=== PATIENT | male | born 1960 | race Caucasian/White ===

== ENCOUNTER 2024-09-29 17:55 | Emergency (ER) | payer OTHER, SELFPAY ==
[2024-09-29 18:05] VITALS: BP 170/100; BP 175/75; PULSE 115; RESP 18; O2SAT 93; O2SAT 94; BMI 23.0
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
[2024-09-29 18:43] LABS: Glucose, Whole Blood 139 mg/dL (60-115)
--- NOTE | 2024-09-29 18:58 | PC.NURSE ---
this RN witnessed patient consent for blood draw. blood drawn by this RN. chain of custody done with michel SANTO. patient is awake and alert
== END 2024-09-30 00:36 | disposition home or self-care (01) ==
PROVIDERS: Emergency Provider Emergency Medicine
DX: R41.0 Disorientation, unspecified (principal); R03.0 Elevated blood-pressure reading, without diagnosis of hypertension; R06.82 Tachypnea, not elsewhere classified; R21 Rash and other nonspecific skin eruption
CPT/HCPCS: 82947; 99282; 99284

== ENCOUNTER 2024-10-04 18:27 | Inpatient (IN) | payer OTHER, SELFPAY ==
--- NOTE | ~2024-10-04 | XR_ITS ---
CLINICAL HISTORY: low spo2, cough 1 view chest x-ray. Comparison: None Findings: No pleural effusion. No pneumothorax. Heart size normal. No acute fracture. Impression: Mild increased density superimposed in the anterior arcs of the left 4th and 5th ribs most likely due to anterior rib calcification but can not exclude small consolidations in this location. Consider adding lateral view on follow-up exam. This document has been electronically signed by: Tom Kang MD on 10/04/2024 20:23:18
--- NOTE | ~2024-10-04 | CT_ITS ---
CLINICAL HISTORY: hypoxia CT chest without contrast Comparison: None Findings: Motion and streak artifact limit evaluation. The heart size is normal. Diffuse esophageal mural thickening, nonspecific. Gynecomastia. Paraseptal and centrilobular emphysema with bullous changes in the right apex. Ill-defined diffuse bilateral dependent consolidations in the chnsr-wjucfoy-grth-left lungs. No significant pleural effusion or pneumothorax. Tiny bilateral ill-defined pulmonary nodules measuring up to 5 mm. Per Fleischner criteria: Low-risk patients: No routine follow-up required. High-risk patients: Optional CT at 12 months. Hepatic steatosis noted. Bilateral perinephric stranding, nonspecific. Possible gallbladder wall thickening versus artifact from motion. Thoracic diffuse idiopathic skeletal hyperostosis. Osteopenia. Multilevel Schmorl's nodes. IMPRESSION: 1. Paraseptal and centrilobular emphysema with bullous changes in the right apex. 2. Ill-defined diffuse bilateral dependent consolidations in the msdhe-mcsvcjl-bukl-left lungs. Superimposed aspiration or pneumonia suspected This document has been electronically signed by: Brois Dior MD on 10/04/2024 22:47:26
--- NOTE | ~2024-10-04 | CT_ITS ---
CLINICAL HISTORY: altered mental status CT head without contrast Comparison: None Findings: Scattered subcortical and periventricular hypoattenuation, likely in keeping with chronic small vessel ischemic disease. Parenchymal volume loss with compensatory prominence of the ventricles and CSF spaces. No acute territorial infarction, intracranial hemorrhage, midline shift or hydrocephalus. Mucosal thickening throughout the paranasal sinuses. The orbits are within normal limits. There is no acute fracture. IMPRESSION: 1. No acute intracranial findings. 2. Additional findings as described. This document has been electronically signed by: Boris Dior MD on 10/04/2024 22:49:55
[2024-10-04 18:29] VITALS: BP 140/70; PULSE 130; O2SAT 96
[2024-10-04 18:41] VITALS: BP 147/91; PULSE 138; RESP 22; TEMP 36.1; O2SAT 89; BMI 22.1
--- NOTE | 2024-10-04 18:54 | ECG_ITS ---
Test Reason : OVERDOSE Blood Pressure : */* mmHG Vent. Rate : 127 BPM Atrial Rate : 127 BPM P-R Int : 132 ms QRS Dur : 68 ms QT Int : 324 ms P-R-T Axes : 78 66 -56 degrees QTcB Int : 470 ms Poor data quality Sinus tachycardia Nonspecific T wave changes No previous ECGs available Referred By: Generic ED Physician Electronically Signed By: Gilberto Marquez
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
[2024-10-04 20:00] LABS: MANUAL DIFF FLAG NO
[2024-10-04 20:01] LABS: Venous Blood Gas Refer to POC result
[2024-10-04 20:02] LABS: VBG Base Excess 0.6 mmol/L; VBG HCO3 28 mmol/L (22-26); VBG pCO2 59 mmHg; VBG pH 7.28 (7.32-7.43); VBG pO2 28 mmHg
[2024-10-04 20:06] LABS: Prothrombin Time 11.3 SEC (10.9-12.4)
[2024-10-04 20:14] LABS: Anion Gap 15 (12-20); Blood Urea Nitrogen 22 mg/dL (9-16); Calcium 9.1 mg/dL (8.4-10.2); Carbon Dioxide 26 mmol/L (22-29); Chloride 102 mmol/L (96-108); Estimated Glomerular Filt Rate 31; Ethanol 10 mg/dL; Glucose Random 157 mg/dL (60-115); Magnesium 1.9 mg/dL (1.6-2.6); Potassium 3.8 mmol/L (3.3-5.1); Sodium 139 mmol/L (135-145)
[2024-10-04 20:15] LABS: Basophils Percent Auto 0.3 % (0-2); Eosinophils Percent Auto 0.3 % (0-4); Hemoglobin 14.9 g/dl (14.0-18.0); Imm Gran Abs Auto 0.19 X10*3/uL (0.00-0.03); Imm Gran Pct Auto 1.9 % (0.0-0.4); Lymphocytes Absolute Auto 0.4 X10*3/uL (1.2-4.9); Mean Corpuscular HGB Conc 33.9 g/dl (31.0-36.0); Mean Corpuscular Volume 97.6 fL (80.0-98.0); Mean Platelet Volume 10.6 fL (9.4-12.4); Monocytes Percent Auto 10.2 % (2-11); Neutrophils Absolute Auto 8.4 x10*3/uL (2.0-8.3); Neutrophils Percent Auto 83.3 % (45-73); Platelet Count 165 X10*3/uL (160-400); Red Blood Count 4.51 X10*6/uL (4.60-5.80); Red Cell Distribution Width 12.8 % (11.0-16.0)
[2024-10-04 20:17] LABS: Alanine Aminotransferase 44 U/L (0-40); Albumin Level 3.9 g/dL (3.5-5.0); Alkaline Phosphatase 85 U/L (39-117); Aspartate Amino Transferase 97 U/L (5-37); Bilirubin Direct 0.2 mg/dL (0.0-0.5); Bilirubin Total 0.6 mg/dL (0.0-1.0); C Reactive Protein 0.36 mg/dL (< or = 0.50); Lactic Acid 3.3 mmol/L (0.5-2.0); Total Protein 7.6 g/dL (6.5-8.0)
[2024-10-04 20:22] LABS: Troponin-I High Sensitivity 29.1 ng/L (<3.5-35.0)
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
[2024-10-04 20:37] LABS: Influenza A PCR NEGATIVE (Negative); Influenza B PCR NEGATIVE (Negative); Resp Syncy Virus RNA Qual PCR NEGATIVE (Negative); SARS COV2 PCR INHOUSE NEGATIVE (Negative)
[2024-10-04] MEDS: 0.9 % Sodium Chloride 1,000 ML 999 ML IV ×2 (20:37→21:54)
[2024-10-04] MEDS: Piperacillin Sodium/Tazobactam 4.5 GM in 0.9 % Sodium Chloride 100 ML IV (20:37)
--- NOTE | 2024-10-04 20:53 | PC.NURSE ---
Pt. increasingly agitated, tremulous, HR elevated.
[2024-10-04] MEDS: levalbuterol HCL 1.25 MG/3 ML VIAL.NEB 5 MG INHALE (21:12)
[2024-10-04 21:14] VITALS: PULSE 150; RESP 36; O2SAT 92
[2024-10-04 21:15] VITALS: BP 156/66; PULSE 149; RESP 39; TEMP 36.3; O2SAT 94
[2024-10-04] MEDS: PHENobarbitaL sodium 130 MG/ML IM ONCE 363 MG IM (21:23)
[2024-10-04 21:56] LABS: Reflex Lactate? Lactic Acid Added
[2024-10-04 22:47] LABS: VBG Base Excess -1.7 mmol/L; VBG HCO3 24 mmol/L (22-26); VBG pCO2 44 mmHg; VBG pH 7.34 (7.32-7.43); VBG pO2 39 mmHg
[2024-10-04 22:47] LABS: Venous Blood Gas Refer to POC result
[2024-10-04 23:02] LABS: ~Lactic Acid-LAB USE ONLY 2.6 mmol/L (0.5-2.0)
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
[2024-10-04 23:07] VITALS: BP 109/56; PULSE 128; RESP 30; TEMP 36.7; O2SAT 97
[2024-10-04 23:07] LABS: Troponin-I High Sensitivity 111.3 ng/L (<3.5-35.0)
--- NOTE | 2024-10-04 23:10 | PC.NURSE ---
assumed care of patient at this time. CIWA at this time 7 patient reporting pain only when coughing, no other complaints at this time
[2024-10-04 23:36] LABS: Amphetamine Screen Urine Not Detected (Not Detect); Barbiturates, Urine POSITIVE (Not Detect); Benzodiazepines Screen Urine POSITIVE (Not Detect); Buprenorphine Scr Not Detected (Not Detect); Cannabinoid Screen Urine Not Detected (Not Detect); Cocaine Screen Urine Not Detected (Not Detect); Fentanyl, urine POSITIVE (Not Detect); Methadone Screen, Urine Not Detected (Not Detect); Opiate Screen Urine Not Detected (Not Detect); Oxycodone Screen Urine Not Detected (Not Detect); Phencyclidine Screen Urine Not Detected (Not Detect)
--- NOTE | 2024-10-04 23:36 | ECG_ITS ---
Test Reason : tachycardia Blood Pressure : */* mmHG Vent. Rate : 111 BPM Atrial Rate : 111 BPM P-R Int : 138 ms QRS Dur : 64 ms QT Int : 356 ms P-R-T Axes : 39 51 78 degrees QTcB Int : 484 ms Sinus tachycardia Otherwise normal ECG When compared with ECG of 04-Oct-2024 20:00, Poor data quality, interpretation may be adversely affected Referred By: Wm Cha Electronically Signed By: Gilberto Marquez
[2024-10-04] MEDS: Enoxaparin Sodium 40 MG/0.4 ML SYRINGE SUBCUT (23:49)
[2024-10-04] MEDS: Thiamine HCL 200 MG in 0.9 % Sodium Chloride 100 ML 204 MG IV (23:49)
[2024-10-04] MEDS: Lactated Ringers 1,000 ML 200 ML IVCONT (23:50)
[2024-10-04] MEDS: Ampicillin Sodium/Sulbactam Na 3 GM in 0.9 % Sodium Chloride 100 ML IV (23:53)
[2024-10-04] MEDS: PHENobarbitaL sodium 130 MG/ML VIAL IM Q3Hx2 245 MG IM (23:56)
[2024-10-05] VITALS (16 sets, daily range): BP systolic 89–151; BP diastolic 47–77; PULSE 85–110; RESP 18–26; TEMP 36.1–37.7; O2SAT 93–100; BMI 26.9
--- NOTE | 2024-10-05 00:08 | PC.NURSE ---
Callie guerinarmed custom protection officer called to check in on patient reported someone from office will call back in the morning
[2024-10-05 00:40] LABS: Reflex Lactate? 2 Y
[2024-10-05 02:01] LABS: ~Lactic Acid-LAB USE ONLY 2.8 mmol/L (0.5-2.0)
--- NOTE | 2024-10-05 02:48 | PC.NURSE ---
message Dr. Sandoval due to patient blood pressure being low. no new orders at this time
--- NOTE | 2024-10-05 03:30 | PC.NURSE ---
Phenobarbital held at this time d/t patients hypotension. Hospitalist aware
[2024-10-05] MEDS: Albumin Human 25 % 100 ML 133.33 ML IV ×2 (04:06→04:47)
[2024-10-05] MEDS: Lactated Ringers 1,000 ML 200 ML IVCONT ×3 (04:46→17:13)
[2024-10-05 05:51] LABS: Hemoglobin 11.1 g/dl (14.0-18.0); Mean Corpuscular Hemoglobin 32.6 pg (27.0-33.0); PLT CLUMP 1
[2024-10-05 05:53] LABS: Hematocrit 32.6 % (42.0-52.0); Mean Corpuscular Volume 95.9 fL (80.0-98.0); Mean Platelet Volume 10.9 fL (9.4-12.4); Red Cell Distribution Width 12.9 % (11.0-16.0)
[2024-10-05] MEDS: Ampicillin Sodium/Sulbactam Na 3 GM in 0.9 % Sodium Chloride 100 ML IV ×4 (06:07→23:16)
[2024-10-05 06:08] LABS: Platelet Count 116 X10*3/uL (160-400); White Blood Count 5.5 X10*3/uL (4.8-10.8)
[2024-10-05 06:18] LABS: Anion Gap 12 (12-20); Blood Urea Nitrogen 22 mg/dL (9-16); Carbon Dioxide 19 mmol/L (22-29); Chloride 109 mmol/L (96-108); Creatinine Clr Calc Pharmacy 43.3; Estimated Glomerular Filt Rate 41; Glucose Random 126 mg/dL (60-115); Potassium 3.3 mmol/L (3.3-5.1); Sodium 137 mmol/L (135-145)
--- NOTE | 2024-10-05 06:38 | PC.NURSE ---
hospitalist messaged about patients blood pressure after albumin no new orders at this time
--- NOTE | 2024-10-05 11:43 | PHA.MEDREC ---
Pharmacy Consult ? Medication Reconciliation Pharmacy has completed the medication reconciliation. Spoke to patient, patient was drowsy but said he doesn't take any medication. Also called brother Toñito [phone] and brother doesn't think patient takes any medications either he doesn't go to the doctor often .
[2024-10-05] MEDS: PHENobarbitaL 15 MG TABLET 45 MG PO ×2 (11:53→20:56)
[2024-10-05] MEDS: Thiamine HCL 100 MG TABLET PO (11:54)
--- NOTE | 2024-10-05 12:24 | MHC.SL.SWA ---
Risk of Aspiration Due to: ?aspiration PNA Dysphasia Diet Status:UPGRADE from NPO Liquid Consistency and Strategies for Safe Swallow: Liquid Intake Recommendation: Thin Liquid Intake Strategies: Unrestricted Solid Food Consistency: Dietary Recommendations: Regular Oral Medication Intake: Whole with Liquid Please contact the pharmacy regarding appropriate crushable or liquid drug formulations that are available whenever modified delivery is recommended. Compensatory Strategies and Precautions to be Taken for Safe Swallow: Sitting Upright (90 deg) Supervision While Eating and Drinking for Safe Swallow: None Needed Recommendation for Speech: Inpatient Speech Therapy Comment: Recommend UPGRADE to REGULAR solids and THIN liquids. Meds whole w/ liquid OK. Recommend 1 f/u with TELESERVICES REPRESENTATIVE to ensure toleration of diet following suspected aspiration and ?aspiration PNA. Frequency/Duration: PRN Date Range for Service Req: M-F Quality Control Assistant Clinican/Clinical Fellow: No Supervisory Statement: I have reviewed and agree with the student/clinical fellow's documentation: N/A Speech Language Pathologist: Evette Conroy M.A., CCC-TELESERVICES REPRESENTATIVE
--- NOTE | 2024-10-05 12:38 | HO.PM.IMPN ---
Subjective Subjective Date of Service: 10/05/24 Review of Systems Follow up encephalopathy, ETOH withdrawal, aspiration pna still sleepy no complaints of discomfort Physical Exam Vital Signs: Vital Signs: Last Vital Signs Temp 98.2 F 10/05/24 10:50 Pulse 88 10/05/24 10:50 Resp 18 10/05/24 10:50 BP 151/77 H 10/05/24 10:50 Pulse Ox 97 10/05/24 10:50 O2 Del Method Nasal Cannula 10/05/24 10:50 O2 Flow Rate 3 10/05/24 10:50 BMI result Body Mass Index 26.9 Appearing in no acute distress lung sounds are clear to auscultation heart regular rate rhythm, clear S1, S2 positive bowel sounds, abdomen is soft, nontender neuro patient is alert x3, no focal deficits Objective Data Active Medications Acetaminophen (Acetaminophen 325 Mg Tablet) 650 mg PO Q6H PRN PRN Reason: Pain, Mild 1-3,fever,headache Calcium Carbonate (Calcium Carbonate 750 Mg Tab.Chew) 750 mg PO Q4H PRN PRN Reason: Heartburn Enoxaparin Sodium (Enoxaparin Sodium 40 Mg/0.4 Ml Syringe) 40 mg SUBCUT BEDTIME [facility] Last Admin: 10/04/24 23:49 Dose: 40 mg Documented By: ZEINAB Ampicillin Sodium/Sulbactam (Sodium 3 gm/ Sodium Chloride) 100 mls @ 200 mls/hr IV Q6H [facility] Last Admin: 10/05/24 11:54 Dose: 200 mls/hr Documented By: AMILCAR Lactated Ringer's (Lr) 1,000 mls @ 200 mls/hr IVCONT .Q5H [facility] Last Admin: 10/05/24 11:54 Dose: 200 mls/hr Documented By: AMILCAR Magnesium Hydroxide (Milk Of Magnesia 30 Ml Oral.Susp) 30 ml PO DAILY PRN PRN Reason: Constipation Melatonin (Melatonin 3 Mg Tablet) 6 mg PO BEDTIME PRN PRN Reason: Insomnia Ondansetron HCl (Ondansetron Hcl 4 Mg/2 Ml Vial) 4 mg IVPUSH Q8H PRN PRN Reason: Nausea and Vomiting Pharmacy Consult (Consult Rx Etoh Phenob Im/Po) 1 each MISCELLANE ONCE PRN; Protocol PRN Reason: Consult order Phenobarbital (Phenobarbital 15 Mg Tablet) 45 mg PO BID [facility]; Protocol Stop: 10/06/24 21:01 Last Admin: 10/05/24 11:53 Dose: 45 mg Documented By: AMILCAR Phenobarbital (Phenobarbital 15 Mg Tablet) 15 mg PO BID [facility]; Protocol Stop: 10/08/24 21:01 Phenobarbital (Phenobarbital 15 Mg Tablet) 15 mg PO DAILY [facility]; Protocol Stop: 10/10/24 09:01 Sodium Chloride (0.9 % Sodium Chloride Flush 3 Ml Syringe) 3 ml IVFLUSH QSHIFT [facility] Last Admin: 10/05/24 07:30 Dose: Not Given Documented By: MADI Non-Admin Reason: IV Running Thiamine HCl (Thiamine Hcl 100 Mg Tablet) 100 mg PO DAILY [facility] Last Admin: 10/05/24 11:54 Dose: 100 mg Documented By: AMILCAR Labs 10/05/24 05:08 10/05/24 05:08 Labs: Laboratory Results - last 24 hr 10/04/24 10/04/24 10/04/24 19:49 19:49 19:59 MCV 97.6 MCH 33.0 MCHC 33.9 RDW 12.8 Plt Count 165 MPV 10.6 Immature Gran % (Auto) 1.9 H Neut % (Auto) 83.3 H Lymph % (Auto) 4.0 L [place] % (Auto) 10.2 Eos % (Auto) 0.3 Baso % (Auto) 0.3 Lymph # (Auto) 0.4 L [place] # (Auto) 1.0 Eos # (Auto) 0.0 Baso # (Auto) 0.0 Abs Immat Gran (auto) 0.19 H Absolute Neuts (auto) 8.4 H Absolute Nucleated RBC 0.000 Nucleated RBC % (auto) 0.0 PT 11.3 INR 1.0 VBG pH 7.28 L VBG pCO2 59 VBG pO2 28 VBG HCO3 28 H VBG O2 Saturation 30.0 VBG Base Excess 0.6 Anion Gap 15 Estim Creat Clear Calc 34.0 Estimated GFR 31 Random Glucose 157 H Lactic Acid 3.3 H* Lactic Acid F/U @ 2Hr Lactic Acid F/U @ 4Hr Calcium 9.1 Magnesium 1.9 Total Bilirubin 0.6 Direct Bilirubin 0.2 AST 97 H ALT 44 H Alkaline Phosphatase 85 Total Creatine Kinase Cancelled 1911 H C-Reactive Protein 0.36 Total Protein 7.6 Albumin 3.9 Urine Opiates Screen Ur Buprenorphine Scrn Ur Oxycodone Screen Urine Methadone Screen Urine Fentanyl Screen Ur Barbiturates Screen Ur Phencyclidine Scrn Ur Amphetamines Screen U Benzodiazepines Scrn Urine Cocaine Screen U Marijuana (THC) Screen Ethyl Alcohol 10 Influenza Type A (PCR) NEGATIVE Influenza Type B (PCR) NEGATIVE RSV RNA Qual (PCR) NEGATIVE SARS-CoV-2 RNA (RT-PCR) NEGATIVE 10/04/24 10/04/24 10/04/24 22:36 22:43 23:17 MCV MCH MCHC RDW Plt Count MPV Immature Gran % (Auto) Neut % (Auto) Lymph % (Auto) [place] % (Auto) Eos % (Auto) Baso % (Auto) Lymph # (Auto) [place] # (Auto) Eos # (Auto) Baso # (Auto) Abs Immat Gran (auto) Absolute Neuts (auto) Absolute Nucleated RBC Nucleated RBC % (auto) PT INR VBG pH 7.34 VBG pCO2 44 VBG pO2 39 VBG HCO3 24 VBG O2 Saturation 63.0 VBG Base Excess -1.7 Anion Gap Estim Creat Clear Calc Estimated GFR Random Glucose Lactic Acid Lactic Acid F/U @ 2Hr 2.6 H* Lactic Acid F/U @ 4Hr Calcium Magnesium Total Bilirubin Direct Bilirubin AST ALT Alkaline Phosphatase Total Creatine Kinase 1516 H C-Reactive Protein Total Protein Albumin Urine Opiates Screen Not Detected Ur Buprenorphine Scrn Not Detected Ur Oxycodone Screen Not Detected Urine Methadone Screen Not Detected Urine Fentanyl Screen POSITIVE H Ur Barbiturates Screen POSITIVE H Ur Phencyclidine Scrn Not Detected Ur Amphetamines Screen Not Detected U Benzodiazepines Scrn POSITIVE H Urine Cocaine Screen Not Detected U Marijuana (THC) Screen Not Detected Ethyl Alcohol Influenza Type A (PCR) Influenza Type B (PCR) RSV RNA Qual (PCR) SARS-CoV-2 RNA (RT-PCR) 10/05/24 10/05/24 01:33 05:08 MCV 95.9 MCH 32.6 MCHC 34.0 RDW 12.9 Plt Count 116 L D MPV 10.9 Immature Gran % (Auto) Neut % (Auto) Lymph % (Auto) [place] % (Auto) Eos % (Auto) Baso % (Auto) Lymph # (Auto) [place] # (Auto) Eos # (Auto) Baso # (Auto) Abs Immat Gran (auto) Absolute Neuts (auto) Absolute Nucleated RBC 0.000 Nucleated RBC % (auto) 0.0 PT INR VBG pH VBG pCO2 VBG pO2 VBG HCO3 VBG O2 Saturation VBG Base Excess Anion Gap 12 Estim Creat Clear Calc 43.3 Estimated GFR 41 Random Glucose 126 H Lactic Acid Lactic Acid F/U @ 2Hr Lactic Acid F/U @ 4Hr 2.8 H* Calcium 8.0 L D Magnesium Total Bilirubin Direct Bilirubin AST ALT Alkaline Phosphatase Total Creatine Kinase 813 H C-Reactive Protein Total Protein Albumin Urine Opiates Screen Ur Buprenorphine Scrn Ur Oxycodone Screen Urine Methadone Screen Urine Fentanyl Screen Ur Barbiturates Screen Ur Phencyclidine Scrn Ur Amphetamines Screen U Benzodiazepines Scrn Urine Cocaine Screen U Marijuana (THC) Screen Ethyl Alcohol Influenza Type A (PCR) Influenza Type B (PCR) RSV RNA Qual (PCR) SARS-CoV-2 RNA (RT-PCR) Assessment and Plan (1) ETOH abuse: Status: Acute Plan 64-year-old male with a past medical history significant for ?hypertension (no medication), alcohol use, who presented to the ED via EMS as patient was found unresponsive at home by family member. Patient denied any recent alcohol or drug use but was responsive to 8mg of Narcan and alcohol level is 10. Released [facility] [place] [facility] this morning at 10:30am, found unresponsive later this afternoon. Sepsis, acute respiratory failure with hypoxia, and metabolic encephalopathy secondary to aspiration pneumonia COVID/flu/RSV negative chest CT ill-defined diffuse bilateral dependent consolidations in the right greater than left lungs. Superimposed aspiration or pneumonia suspected. Paraseptal and central lobar emphysema with bullous changes in the right apex s/p 2L IV fluids in ED IV Unasyn VBG initially with acidosis, improved on repeat new O2 requirement, currently maintaining on 3 L via CO monitor CBC and BMP Rhabdo secondary to fall and demand ischemia CPK 1911,1516, 813 given 2 L IV fluids in ED as above, continue LR 200 mL/HR monitor CPK ROGELIO secondary to demand ischemia creatinine 2.14, 1.68 IV fluids as above monitor BMP Alcohol withdrawal/etoh abuse alcohol level 10 phenobarb protocol monitor CIWA thiamine 200 mg IV x1, then 100 mg p.o. q.d. addiction med consult monitor on tele Substance use disorder/overdose/toxic encephalopathy patient responsive to 8 mg Narcan by EMS but denies substance use addiction med consult urine tox screen not yet done Acute lactic acidosis 3.3, 2.6 on repeat likely secondary to demand ischemia and albuterol use follow CBC and BMP Elevated troponin 29.1, 111.3 on repeat EKG with sinus tachycardia likely elevated due to demand ischemia Elevated BP readings likely secondary to withdrawal, follow Full code VTE prophylaxis: Lovenox Quality Stroke Does the patient have a stroke diagnosis?: No VTE Prior VTE?: No VTE Risk Level:: Medical - moderate - high VTE Device Contraindication: Treatment Not Indicated VTE Drug Contraindication: N/A - Med Ordered
--- NOTE | 2024-10-05 12:54 | HO.ADDICT_ITS ---
History of Present Illness Date of Service: 10/05/2024 Chief Complaint: ETOH, Was unresponsive now a&ox3 Reason for Consult: AUD and suspected opioid overdose HPI Narrative: Patient is a 64 year old male with known AUD, medically admitted with rhabdo and aspiration pneumonia He presented to [facility] [place] [place] ED via ambulance after he was found at home unresponsive--narcan administered with +positive effect Patient seen in room 482. Laying in bed resting, with eyes closed, but answering questions. Reports he has been drinking about 15 nips and some beers daily for about a year. Denies any history of treatment, including CIRA, ATS etc. Reports that alcohol has been impacting life, mainly in that he was recently arrested and briefly incarcerated for driving while under the influence Denies any medical concerns related to alcohol use-- I just gotta stop this Denies any history of severe withdrawal sx He appears overall comfortable, with no tremor, restlessness or diaphoresis noted. Labs reviewed. High dose thiamine administered at admission, now at 100mg PO daily Discussed +UDS Denies any opiate use. Reports that he took a gummy a friend gave him, but he hated it and threw the rest away. Denies any prescription opiate use, states he was prescribed pain meds years ago. AUDIT-C Brief Intervention This group underwriter met with patient to discuss current alcohol use and concerns related to increased risk of alcohol related problems. Discussed how alcohol use has impacted health, including negative impact on mental health and overall physical wellbeing. Discussed risk reduction strategies including drinking below the recommended limit. Review of Systems Constitutional: Reports as per HPI, Denies body ache(s), Denies chills and Reports weakness Gastrointestinal: Denies loose stools and Denies nausea Reports weakness Psychiatric: Denies anxiety Diagnostics Vital Signs (24Hr): Vital Signs - 24 hr 10/04/24 18:41 10/04/24 21:14 10/04/24 21:15 Temperature 97 F 97.3 F Pulse Rate 138 H 150 H 149 H Respiratory Rate 22 H 36 H 39 H Blood Pressure 147/91 H 156/66 H Pulse Oximetry 89 L 94 Oxygen Delivery Method Room Air Nasal Cannula Oxygen Flow Rate 6 10/04/24 23:07 10/05/24 00:22 10/05/24 00:39 Temperature 98.0 F Pulse Rate 128 H 110 H 101 H Respiratory Rate 30 H 26 H 26 H Blood Pressure 109/56 L 112/65 114/58 L Pulse Oximetry 97 100 99 Oxygen Delivery Method Nasal Cannula Nasal Cannula Nasal Cannula Oxygen Flow Rate 5 5 3 10/05/24 02:14 10/05/24 02:43 10/05/24 03:14 Temperature 98.1 F Pulse Rate 96 92 Respiratory Rate 25 H Blood Pressure 96/51 L 96/53 L 99/47 L Pulse Oximetry 97 Oxygen Delivery Method Nasal Cannula Oxygen Flow Rate 3 10/05/24 03:18 10/05/24 03:19 10/05/24 03:44 Temperature Pulse Rate Respiratory Rate Blood Pressure 89/51 L 97/53 L 94/48 L Pulse Oximetry Oxygen Delivery Method Oxygen Flow Rate 10/05/24 04:40 10/05/24 06:06 10/05/24 06:39 Temperature 99.1 F 98.2 F Pulse Rate 89 86 85 Respiratory Rate 21 H 22 H 20 Blood Pressure 104/55 L 96/56 L 94/49 L Pulse Oximetry 96 97 98 Oxygen Delivery Method Nasal Cannula Nasal Cannula Nasal Cannula Oxygen Flow Rate 3 3 3 10/05/24 08:00 10/05/24 10:50 Temperature 98.4 F 98.2 F Pulse Rate 108 H 88 Respiratory Rate 20 18 Blood Pressure 138/72 151/77 H Pulse Oximetry 93 97 Oxygen Delivery Method Nasal Cannula Nasal Cannula Oxygen Flow Rate 3 3 BMI result Body Mass Index 26.9 Labs 10/05/24 05:08 10/05/24 05:08 Labs: Laboratory Results - last 48 hr 10/04/24 10/04/24 10/04/24 19:49 19:49 19:59 WBC 10.0 RBC 4.51 L Hgb 14.9 Hct 44.0 MCV 97.6 MCH 33.0 MCHC 33.9 RDW 12.8 Plt Count 165 MPV 10.6 Immature Gran % (Auto) 1.9 H Neut % (Auto) 83.3 H Lymph % (Auto) 4.0 L [place] % (Auto) 10.2 Eos % (Auto) 0.3 Baso % (Auto) 0.3 Lymph # (Auto) 0.4 L [place] # (Auto) 1.0 Eos # (Auto) 0.0 Baso # (Auto) 0.0 Abs Immat Gran (auto) 0.19 H Absolute Neuts (auto) 8.4 H Absolute Nucleated RBC 0.000 Nucleated RBC % (auto) 0.0 PT 11.3 INR 1.0 VBG pH 7.28 L VBG pCO2 59 VBG pO2 28 VBG HCO3 28 H VBG O2 Saturation 30.0 VBG Base Excess 0.6 Sodium 139 Potassium 3.8 Chloride 102 Carbon Dioxide 26 Anion Gap 15 BUN 22 H Creatinine 2.14 H Estim Creat Clear Calc 34.0 Estimated GFR 31 Random Glucose 157 H Lactic Acid 3.3 H* Lactic Acid F/U @ 2Hr Lactic Acid F/U @ 4Hr Calcium 9.1 Magnesium 1.9 Total Bilirubin 0.6 Direct Bilirubin 0.2 AST 97 H ALT 44 H Alkaline Phosphatase 85 Total Creatine Kinase Cancelled 1911 H Troponin I High Sens 29.1 C-Reactive Protein 0.36 Total Protein 7.6 Albumin 3.9 Urine Opiates Screen Ur Buprenorphine Scrn Ur Oxycodone Screen Urine Methadone Screen Urine Fentanyl Screen Ur Barbiturates Screen Ur Phencyclidine Scrn Ur Amphetamines Screen U Benzodiazepines Scrn Urine Cocaine Screen U Marijuana (THC) Screen Ethyl Alcohol 10 Influenza Type A (PCR) NEGATIVE Influenza Type B (PCR) NEGATIVE RSV RNA Qual (PCR) NEGATIVE SARS-CoV-2 RNA (RT-PCR) NEGATIVE 10/04/24 10/04/24 10/04/24 22:36 22:43 23:17 WBC RBC Hgb Hct MCV MCH MCHC RDW Plt Count MPV Immature Gran % (Auto) Neut % (Auto) Lymph % (Auto) [place] % (Auto) Eos % (Auto) Baso % (Auto) Lymph # (Auto) [place] # (Auto) Eos # (Auto) Baso # (Auto) Abs Immat Gran (auto) Absolute Neuts (auto) Absolute Nucleated RBC Nucleated RBC % (auto) PT INR VBG pH 7.34 VBG pCO2 44 VBG pO2 39 VBG HCO3 24 VBG O2 Saturation 63.0 VBG Base Excess -1.7 Sodium Potassium Chloride Carbon Dioxide Anion Gap BUN Creatinine Estim Creat Clear Calc Estimated GFR Random Glucose Lactic Acid Lactic Acid F/U @ 2Hr 2.6 H* Lactic Acid F/U @ 4Hr Calcium Magnesium Total Bilirubin Direct Bilirubin AST ALT Alkaline Phosphatase Total Creatine Kinase 1516 H Troponin I High Sens 111.3 H* D C-Reactive Protein Total Protein Albumin Urine Opiates Screen Not Detected Ur Buprenorphine Scrn Not Detected Ur Oxycodone Screen Not Detected Urine Methadone Screen Not Detected Urine Fentanyl Screen POSITIVE H Ur Barbiturates Screen POSITIVE H Ur Phencyclidine Scrn Not Detected Ur Amphetamines Screen Not Detected U Benzodiazepines Scrn POSITIVE H Urine Cocaine Screen Not Detected U Marijuana (THC) Screen Not Detected Ethyl Alcohol Influenza Type A (PCR) Influenza Type B (PCR) RSV RNA Qual (PCR) SARS-CoV-2 RNA (RT-PCR) 10/05/24 10/05/24 01:33 05:08 WBC 5.5 RBC 3.40 L D Hgb 11.1 L D Hct 32.6 L D MCV 95.9 MCH 32.6 MCHC 34.0 RDW 12.9 Plt Count 116 L D MPV 10.9 Immature Gran % (Auto) Neut % (Auto) Lymph % (Auto) [place] % (Auto) Eos % (Auto) Baso % (Auto) Lymph # (Auto) [place] # (Auto) Eos # (Auto) Baso # (Auto) Abs Immat Gran (auto) Absolute Neuts (auto) Absolute Nucleated RBC 0.000 Nucleated RBC % (auto) 0.0 PT INR VBG pH VBG pCO2 VBG pO2 VBG HCO3 VBG O2 Saturation VBG Base Excess Sodium 137 Potassium 3.3 Chloride 109 H Carbon Dioxide 19 L Anion Gap 12 BUN 22 H Creatinine 1.68 H Estim Creat Clear Calc 43.3 Estimated GFR 41 Random Glucose 126 H Lactic Acid Lactic Acid F/U @ 2Hr Lactic Acid F/U @ 4Hr 2.8 H* Calcium 8.0 L D Magnesium Total Bilirubin Direct Bilirubin AST ALT Alkaline Phosphatase Total Creatine Kinase 813 H Troponin I High Sens C-Reactive Protein Total Protein Albumin Urine Opiates Screen Ur Buprenorphine Scrn Ur Oxycodone Screen Urine Methadone Screen Urine Fentanyl Screen Ur Barbiturates Screen Ur Phencyclidine Scrn Ur Amphetamines Screen U Benzodiazepines Scrn Urine Cocaine Screen U Marijuana (THC) Screen Ethyl Alcohol Influenza Type A (PCR) Influenza Type B (PCR) RSV RNA Qual (PCR) SARS-CoV-2 RNA (RT-PCR) Mental Status Exam Mental Status Exam Level of Consciousness: Drowsy Patient Behavior: Cooperative Mood Description: Flat Affect Description: Flat Speech Pattern: Clear Thought Content: positive for [place] Judgement: Fair Medications Medications Current Medications Acetaminophen (Acetaminophen 325 Mg Tablet) 650 mg PO Q6H PRN PRN Reason: Pain, Mild 1-3,fever,headache Calcium Carbonate (Calcium Carbonate 750 Mg Tab.Chew) 750 mg PO Q4H PRN PRN Reason: Heartburn Enoxaparin Sodium (Enoxaparin Sodium 40 Mg/0.4 Ml Syringe) 40 mg SUBCUT BEDTIME [facility] Last Admin: 10/04/24 23:49 Dose: 40 mg Ampicillin Sodium/Sulbactam (Sodium 3 gm/ Sodium Chloride) 100 mls @ 200 mls/hr IV Q6H [facility] Last Infusion: 10/05/24 12:43 Dose: Infused Lactated Ringer's (Lr) 1,000 mls @ 200 mls/hr IVCONT .Q5H [facility] Last Admin: 10/05/24 12:44 Dose: Not Given Magnesium Hydroxide (Milk Of Magnesia 30 Ml Oral.Susp) 30 ml PO DAILY PRN PRN Reason: Constipation Melatonin (Melatonin 3 Mg Tablet) 6 mg PO BEDTIME PRN PRN Reason: Insomnia Ondansetron HCl (Ondansetron Hcl 4 Mg/2 Ml Vial) 4 mg IVPUSH Q8H PRN PRN Reason: Nausea and Vomiting Pharmacy Consult (Consult Rx Etoh Phenob Im/Po) 1 each MISCELLANE ONCE PRN; Protocol PRN Reason: Consult order Phenobarbital (Phenobarbital 15 Mg Tablet) 45 mg PO BID [facility]; Protocol Stop: 10/06/24 21:01 Last Admin: 10/05/24 11:53 Dose: 45 mg Phenobarbital (Phenobarbital 15 Mg Tablet) 15 mg PO BID [facility]; Protocol Stop: 10/08/24 21:01 Phenobarbital (Phenobarbital 15 Mg Tablet) 15 mg PO DAILY [facility]; Protocol Stop: 10/10/24 09:01 Sodium Chloride (0.9 % Sodium Chloride Flush 3 Ml Syringe) 3 ml IVFLUSH QSHIFT [facility] Last Admin: 10/05/24 07:30 Dose: Not Given Thiamine HCl (Thiamine Hcl 100 Mg Tablet) 100 mg PO DAILY [facility] Last Admin: 10/05/24 11:54 Dose: 100 mg Allergies Allergies Allergy/AdvReac Type Severity Reaction Status Date / Time No Known Allergies Allergy Verified 10/04/24 18:43 [No Known Allergies*] Assessment & Plan Assessment & Plan (1) Alcohol use disorder: Status: Acute Code(s): F10.90 - Alcohol use, unspecified, uncomplicated Assessment and Plan: * He is very sleepy --may be due to pheno taper unclear what his baseline is and no other collateral available--no family number available in EMR * recommend 2 more days of high dose thiamine 250mg IV as he presented as confused to brother once out of intermediate and in ED * then back to 100mg daily * will continue to follow and discuss CIRA and safer drinking drinking strategies when patient more participatory in interview (2) Opiate overdose: Status: Acute Code(s): T40.601A - Poisoning by unspecified narcotics, accidental (unintentional), initial encounter Assessment and Plan: * does not appear to be experiencing opiate withdrawal sx * denies any opiate use (however responded to narcan) * will d/c with narcan Total time managing care of this patient today _40___ minutes. PMFSH Past Medical History Medical History (Updated 10/05/24 @ 16:38 by Taisha Chowdhury CNP) ETOH abuse HTN (hypertension) Alcohol withdrawal Social History Social History Household Members: Family Housing: Condominium Do you presently have visiting nurse or other home services: No Unable to assess alcohol history related to: Refusing to respond Alcohol intake: former Patient Tobacco Use Status: Never used Tobacco service: No
--- NOTE | 2024-10-05 13:32 | MHC.CM.PN ---
Pt. 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 He does not have a PCP, brochure given. He is functionally independent, no home health services or DME. Transport home at DC is TBD. DCP: home, self care. CM to follow for DC needs.
--- NOTE | 2024-10-05 15:43 | MHC.RECOVRN ---
Brief Intervention for positive AUDIT C was completed by provider.
--- NOTE | 2024-10-05 18:52 | PC.NURSE ---
This RN messaged provider about the rate of fluids. Per MD decrease rate of LR from 200mls/hr - 100mls/hr
[2024-10-05] MEDS: Enoxaparin Sodium 40 MG/0.4 ML SYRINGE SUBCUT (20:57)
[2024-10-05] MEDS: 0.9 % Sodium Chloride Flush 3 ML SYRINGE IVFLUSH ×2 (21:00)
--- NOTE | 2024-10-06 | ECG_ITS ---
Test Reason : cp Blood Pressure : */* mmHG Vent. Rate : 82 BPM Atrial Rate : 82 BPM P-R Int : 146 ms QRS Dur : 78 ms QT Int : 364 ms P-R-T Axes : 58 38 54 degrees QTcB Int : 425 ms Normal sinus rhythm Normal ECG When compared with ECG of 05-Oct-2024 00:14, No significant change was found Referred By: Gilberto Marquez Electronically Signed By: Gilberto Marquez
[2024-10-06] MEDS: Lactated Ringers 1,000 ML 100 ML IVCONT ×3 (03:20→22:40)
[2024-10-06 03:23] VITALS: BP 154/71; PULSE 95; RESP 20; TEMP 37.4; O2SAT 96
[2024-10-06] MEDS: Ampicillin Sodium/Sulbactam Na 3 GM in 0.9 % Sodium Chloride 100 ML IV ×4 (05:27→23:15)
[2024-10-06 07:01] VITALS: BP 160/68; PULSE 84; RESP 20; TEMP 37; O2SAT 96
[2024-10-06 07:50] LABS: Anion Gap 10 (12-20); Blood Urea Nitrogen 11 mg/dL (9-16); Calcium 8.4 mg/dL (8.4-10.2); Carbon Dioxide 27 mmol/L (22-29); Chloride 105 mmol/L (96-108); Creatinine Clr Calc Pharmacy 81.3; Estimated Glomerular Filt Rate > 60; Glucose Random 92 mg/dL (60-115); Potassium 3.3 mmol/L (3.3-5.1); Sodium 139 mmol/L (135-145)
[2024-10-06] MEDS: cloNIDine HCL 0.1 MG TABLET 0.05 MG PO ×2 (09:02→19:34)
[2024-10-06] MEDS: 0.9 % Sodium Chloride Flush 3 ML SYRINGE IVFLUSH ×2 (09:03→18:26)
[2024-10-06] MEDS: Thiamine HCL 100 MG in 0.9 % Sodium Chloride 100 ML 202 MG IV (09:03)
[2024-10-06] MEDS: PHENobarbitaL 15 MG TABLET 45 MG PO ×2 (09:03→19:34)
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
[2024-10-06 10:54] LABS: Troponin-I High Sensitivity 12.4 ng/L (<3.5-35.0)
[2024-10-06 11:04] VITALS: BP 146/68; PULSE 86; RESP 20; TEMP 36.7; O2SAT 96
--- NOTE | 2024-10-06 12:06 | MHC.CM.PN ---
Per rounds, pt. still requiring acute care due to etoh W/D. CM to follow for DC needs.
--- NOTE | 2024-10-06 12:47 | P.PNIM_ITS ---
Subjective Subjective Date of Service: 10/06/24 Interval History: encephalopathy, ETOH withdrawal, aspiration pna Review of Systems awake c/o chest pain-reproducible, pleuritic ,says in middle chest area. Physical Exam 2 Vital Signs: Vital Signs: Last Vital Signs Temp 98.1 F 10/06/24 11:04 Pulse 86 10/06/24 11:04 Resp 20 10/06/24 11:04 BP 146/68 H 10/06/24 11:04 Pulse Ox 96 10/06/24 11:04 O2 Del Method Nasal Cannula 10/06/24 11:04 O2 Flow Rate 2 10/06/24 11:04 BMI result Body Mass Index 26.9 Appearance: Alert.? Oriented X3. cvs: rrr, [id number]. res: air entry siminshed right>left. abd: no rebound or guarding ,nt, bs present. ext pulses present , no cyanosis . neuro: nonfocal. Objective Data Active Medications Acetaminophen (Acetaminophen 325 Mg Tablet) 650 mg PO Q6H PRN PRN Reason: Pain, Mild 1-3,fever,headache Calcium Carbonate (Calcium Carbonate 750 Mg Tab.Chew) 750 mg PO Q4H PRN PRN Reason: Heartburn Clonidine HCl (Clonidine Hcl 0.1 Mg Tablet) 0.05 mg PO BID [facility]; Protocol Last Admin: 10/06/24 09:02 Dose: 0.05 mg Documented By: AMILCAR Enoxaparin Sodium (Enoxaparin Sodium 40 Mg/0.4 Ml Syringe) 40 mg SUBCUT BEDTIME [facility] Last Admin: 10/05/24 20:57 Dose: 40 mg Documented By: TOYA Ampicillin Sodium/Sulbactam (Sodium 3 gm/ Sodium Chloride) 100 mls @ 200 mls/hr IV Q6H [facility] Last Infusion: 10/06/24 06:03 Dose: Infused Documented By: TOYA Lactated Ringer's (Lr) 1,000 mls @ 200 mls/hr IVCONT .Q5H [facility] Last Admin: 10/06/24 09:08 Dose: Not Given Documented By: AMILCAR Non-Admin Reason: bag still full Thiamine HCl 100 mg/ Sodium (Chloride) 101 mls @ 202 mls/hr IV DAILY [facility] Stop: 10/08/24 08:59 Last Infusion: 10/06/24 09:34 Dose: Infused Documented By: AMILCAR Magnesium Hydroxide (Milk Of Magnesia 30 Ml Oral.Susp) 30 ml PO DAILY PRN PRN Reason: Constipation Melatonin (Melatonin 3 Mg Tablet) 6 mg PO BEDTIME PRN PRN Reason: Insomnia Ondansetron HCl (Ondansetron Hcl 4 Mg/2 Ml Vial) 4 mg IVPUSH Q8H PRN PRN Reason: Nausea and Vomiting Pharmacy Consult (Consult Rx Etoh Phenob Im/Po) 1 each MISCELLANE ONCE PRN; Protocol PRN Reason: Consult order Phenobarbital (Phenobarbital 15 Mg Tablet) 45 mg PO BID [facility]; Protocol Stop: 10/06/24 21:01 Last Admin: 10/06/24 09:03 Dose: 45 mg Documented By: AMILCAR Phenobarbital (Phenobarbital 15 Mg Tablet) 15 mg PO BID [facility]; Protocol Stop: 10/08/24 21:01 Phenobarbital (Phenobarbital 15 Mg Tablet) 15 mg PO DAILY [facility]; Protocol Stop: 10/10/24 09:01 Sodium Chloride (0.9 % Sodium Chloride Flush 3 Ml Syringe) 3 ml IVFLUSH QSHIFT [facility] Last Admin: 10/06/24 09:03 Dose: 3 ml Documented By: AMILCAR Labs 10/05/24 05:08 10/06/24 07:15 Labs: Laboratory Results - last 24 hr 10/06/24 07:15 Anion Gap 10 L Estim Creat Clear Calc 81.3 Estimated GFR > 60 Random Glucose 92 Calcium 8.4 Total Creatine Kinase 320 H Microbiology Microbiology Results: Microbiology 10/04/24 19:49 Blood Culture - Preliminary Blood - Venous No growth after 24 hours. 10/04/24 19:49 Blood Culture - Preliminary Blood - Venous No growth after 24 hours. Assessment and Plan (1) Rhabdomyolysis: Status: Acute (2) ROGELIO (acute kidney injury): Status: Acute Plan 64-year-old male with a past medical history significant for ?hypertension (no medication), alcohol use, who presented to the ED via EMS as patient was found unresponsive at home by family member. Patient denied any recent alcohol or drug use but was responsive to 8mg of Narcan and alcohol level is 10. Released from assisted this morning at 10:30am, found unresponsive later this afternoon. Sepsis, acute respiratory failure with hypoxia, and metabolic encephalopathy secondary to aspiration pneumonia COVID/flu/RSV negative chest CT ill-defined diffuse bilateral dependent consolidations in the right greater than left lungs. Superimposed aspiration or pneumonia suspected. Paraseptal and central lobar emphysema with bullous changes in the right apex blood culture -neg@24hrs plan: IV Unasyn new O2 requirement, currently maintaining on 2 L via NC monitor CBC and BMP Rhabdo secondary to fall and demand ischemia CPK 1911,1516, 813-320 ROGELIO secondary to demand ischemia creatinine 2.14, 1.68 improved with ivf. Alcohol withdrawal/etoh abuse alcohol level 10 phenobarb protocol monitor CIWA,thiamine,folic acid. utox -postive for fentanyl,benzo. addiction med consult, on tele Substance use disorder/overdose/toxic encephalopathy patient responsive to 8 mg Narcan by EMS but denies substance use addiction med consult urine tox screen not yet done Acute lactic acidosis 3.3, 2.6 on repeat likely secondary to demand ischemia and albuterol use, no further lactic acid trending. follow CBC and BMP Elevated troponin/chest pain -reproducable . 29.1-111.3-12.4 EKG repeated -unchanged added echo Elevated BP readings likely secondary to withdrawal, follow Full code VTE prophylaxis: Lovenox Quality Stroke Does the patient have a stroke diagnosis?: No VTE Prior VTE?: No VTE Risk Level:: Medical - moderate - high VTE Device Contraindication: Treatment Not Indicated VTE Drug Contraindication: N/A - Med Ordered
--- NOTE | 2024-10-06 12:54 | MHC.SLORD ---
Speech Language Pathology Order Status: Pt sleeping, MGMT CONSULTANT to followup with pt on PO tolerance tomorrow.
--- NOTE | 2024-10-06 13:00 | CA_ITS ---
Transthoracic Echocardiogram Patient (Last, First, Middle): Ian Adhikari, Gender: Male Date of : 1960 Age: 64 Procedure Date: 10/06/2024 Procedure Type: Transthoracic Echocardiogram Location: [facility] [place] Height: 175.26 cm Weight: 82.56 kg BSA: 1.98 m2 Heart Rate: 81 bpm BP: 146 / 68 mmHg [place] [employer] Curer: TO Referring MD: Angel Morgan MD Symptoms: chest pain/elevated tropnins Study Quality: Fair/Contrast ECG Rhythm: Sinus Conclusions: - Normal left ventricular size, thickness, systolic function, and wall motion. The visually estimated ejection fraction is between 55-60%. - Elevated filling pressures. - Normal right ventricular cavity size and systolic function. Findings Procedure Information Contrast agent, definity, is being given per protocol without apparent complications. Left Ventricle Normal left ventricular size, thickness, systolic function, and wall motion. The visually estimated ejection fraction is between 55-60%. Abnormal diastolic function is noted. Spectral Doppler is indicative of an impaired relaxation filling pattern. Elevated filling pressures. Right Ventricle Normal right ventricular cavity size and systolic function. Atria The left atrium is normal in size. The right atrium is normal in size. Aortic Valve The aortic valve structure and function is likely normal. There is no aortic valve stenosis. There is no aortic valve regurgitation. Mitral Valve Likely normal mitral valve structure and function. There is no mitral valve regurgitation. There is no mitral valve stenosis. Pulmonic Valve The pulmonic valve was not well visualized. Tricuspid Valve The tricuspid valve was not well visualized. There is no tricuspid valve regurgitation. Tricuspid regurgitation envelope is inadequate for calculation of right ventricular systolic pressure. Moderately elevated right atrial pressure. Great Vessels All visible segments of the aorta are normal in size. Venous The inferior vena cava is dilated and collapses greater than 50% with inspiration. Pericardium/Pleural There is a small pericardial effusion. Prior Study Comparison No prior study available for comparison. Measurements 2D Linear Measurements IVSd: 0.87 0.6-0.9/0.6-1.0 cm LVIDd: 4.65 3.9-5.3/4.2-5.9 cm LVIDd Index: 2.35 2.4-3.2/2.2-3.1 cm/m2 LVIDs: 3.60 2.0-3.6 cm LVPWd: 0.86 0.7-1.1 cm LV Mass: 164.88 67-162/88-224 g LV Mass Index: 83.27 43-95/49-115 g/m2 LVOT Diam: 2.00 3.0+(-)1.3 cm 2D Systolic Function EF 4C: 50.90 >55% EF 2C: 49.20 >55% EF BiP: 50.20 >55% Mitral Valve MV Pk E: 1.07 MV PK A: 1.26 MV Decel Time: 171.00 E/A: 0.80 E'Lateral: 6.64 E'Medial: 4.57 E/E' Med: 23.40 E/E' Lat: 16.10 PHT: 50.00 MVA PHT: 4.40 Decel Bleckley: 6.27 Aortic Valve AoV Pk Tawanda: 1.12 AoV Mn Tawanda: 0.74 AoV VTI: 0.23 AoV Pk Grad: 5.00 Aov Mn Grad: 3.00 LAVERN Cont.VTI: 2.62 LVOT LVOT Pk Tawanda: 0.98 LVOT Mn T[place]anda: 0.57 LVOT VTI: 0.19 LVOT Pk Grad: 4.00 LVOT Mn Grad: 2.00 LVOT Diam: 2.00 LVOT Area: 3.14 Diastolic Function MV Pk E: 1.07 MV Pk A: 1.26 E/A: 0.80 E'Medial: 4.57 E/E' Med: 23.40 E' Laterial: 6.64 E/E' Lat: 16.10 Right Ventricle TAPSE (mm): 25.40 TVS' Tawanda: 9.79 Tricuspid Valve RA Press: 8.00 Great Vessels Aorta Ao Asc: 3.00 2.1-3.4 cm Updated in Other Vendor System with Status of Final Gilberto Marquez MD electronically signed on 10/07/2024 10:53:06 PM with status of Final
[2024-10-06] MEDS: Aspirin Enteric Coated 81 MG TABLET.DR 162 MG PO (13:17)
--- NOTE | 2024-10-06 14:39 | PM.CNCAR ---
History of Present Illness History of Present Illness Date of Service: 10/06/24 Requesting physician: Angel Morgan Chief complaint: ETOH, CP Narrative: Pleasant 64-year-old gentleman presenting with alcohol use and presented to the emergency department for unresponsiveness. As he came to send since he complained of chest pain. He is on IV antibiotics for pneumonia. He is describing a central chest discomfort which happens when he is coughing. He is saying when he tries today get deep breath he starts coughing and at that time he gets chest pain. Otherwise does not get any discomfort in the chest. No reproducible chest discomfort overall. Blood pressure mildly elevated. Labs, EKG and imaging reviewed. [facility] Past Medical History Medical History (Updated 10/05/24 @ 16:38 by Taisha Chowdhury CNP) ETOH abuse HTN (hypertension) Alcohol withdrawal Social History Social History Household Members: Family [facility] Do you presently have visiting nurse or other home services: No Unable to assess alcohol history related to: Refusing to respond Alcohol intake: former Patient Tobacco Use Status: Never used Tobacco Smoked in Last 30 Days: No Use of substances other than those prescribed or required for medical reasons: No Currently Displaying Signs/Symptoms of Drug Intoxication Withdrawal: No Have you been hit, kicked, punched, or otherwise hurt by someone within the past year? If so, by whom?: No Do you feel safe in your current relationship?: No Current Relationship Is there a partner from a previous relationship who is making you feel unsafe now?: No Are you made to feel afraid or neglected: No Advance Directives: No Advance Directives Information Provided: No Do you have a plan to hurt others: Vague Recently lost weight without trying: Yes How much weight loss: Unsure Eating poorly because of decreased appetite: Yes Nutrition screen score: 5 Nutrition Risks: No Nutritional Risk Poor oral hygiene: Yes service: No Meds Allergies Allergy/AdvReac Type Severity Reaction Status Date / Time No Known Allergies Allergy Verified 10/04/24 18:43 [No Known Allergies*] Active Medications: Current Medications Acetaminophen (Acetaminophen 325 Mg Tablet) 650 mg PO Q6H PRN PRN Reason: Pain, Mild 1-3,fever,headache Calcium Carbonate (Calcium Carbonate 750 Mg Tab.Chew) 750 mg PO Q4H PRN PRN Reason: Heartburn Clonidine HCl (Clonidine Hcl 0.1 Mg Tablet) 0.05 mg PO BID [facility]; Protocol Last Admin: 10/06/24 09:02 Dose: 0.05 mg Enoxaparin Sodium (Enoxaparin Sodium 40 Mg/0.4 Ml Syringe) 40 mg SUBCUT BEDTIME [facility] Last Admin: 10/05/24 20:57 Dose: 40 mg Ampicillin Sodium/Sulbactam (Sodium 3 gm/ Sodium Chloride) 100 mls @ 200 mls/hr IV Q6H [facility] Last Infusion: 10/06/24 14:35 Dose: Infused Lactated Ringer's (Lr) 1,000 mls @ 200 mls/hr IVCONT .Q5H [facility] Last Admin: 10/06/24 13:18 Dose: 100 mls/hr Thiamine HCl 100 mg/ Sodium (Chloride) 101 mls @ 202 mls/hr IV DAILY [facility] Stop: 10/08/24 08:59 Last Infusion: 10/06/24 09:34 Dose: Infused Magnesium Hydroxide (Milk Of Magnesia 30 Ml Oral.Susp) 30 ml PO DAILY PRN PRN Reason: Constipation Melatonin (Melatonin 3 Mg Tablet) 6 mg PO BEDTIME PRN PRN Reason: Insomnia Ondansetron HCl (Ondansetron Hcl 4 Mg/2 Ml Vial) 4 mg IVPUSH Q8H PRN PRN Reason: Nausea and Vomiting Pharmacy Consult (Consult Rx Etoh Phenob Im/Po) 1 each MISCELLANE ONCE PRN; Protocol PRN Reason: Consult order Phenobarbital (Phenobarbital 15 Mg Tablet) 45 mg PO BID [facility]; Protocol Stop: 10/06/24 21:01 Last Admin: 10/06/24 09:03 Dose: 45 mg Phenobarbital (Phenobarbital 15 Mg Tablet) 15 mg PO BID [facility]; Protocol Stop: 10/08/24 21:01 Phenobarbital (Phenobarbital 15 Mg Tablet) 15 mg PO DAILY [facility]; Protocol Stop: 10/10/24 09:01 Sodium Chloride (0.9 % Sodium Chloride Flush 3 Ml Syringe) 3 ml IVFLUSH QSHIFT [facility] Last Admin: 10/06/24 09:03 Dose: 3 ml Physical Exam Vital Signs: Vital Signs: Last Vital Signs Temp 98.1 F 10/06/24 11:04 Pulse 86 10/06/24 11:04 Resp 20 10/06/24 11:04 BP 146/68 H 10/06/24 11:04 Pulse Ox 96 10/06/24 11:04 O2 Del Method Nasal Cannula 10/06/24 11:04 O2 Flow Rate 2 10/06/24 11:04 BMI result Body Mass Index 26.9 GENERAL APPEARANCE: in no acute distress, pleasant. NECK: no carotid bruit, no jugular venous distention. SKIN: no suspicious lesions, warm and dry. HEART: no murmurs, regular rate and rhythm. LUNGS: clear to auscultation bilaterally. ABDOMEN: soft, nontender. EXTREMITIES: no edema. PERIPHERAL PULSES: equal. NEUROLOGIC: No gross deficits, AAO X 3 Objective Labs and Meds 10/05/24 05:08 10/06/24 07:15 Lab results: Laboratory Results - last 24 hr 10/06/24 10/06/24 07:15 10:13 Sodium 139 Potassium 3.3 Chloride 105 Carbon Dioxide 27 Anion Gap 10 L BUN 11 Creatinine 0.93 Estim Creat Clear Calc 81.3 Estimated GFR > 60 Random Glucose 92 Calcium 8.4 Total Creatine Kinase 320 H Troponin I High Sens 12.4 D Assessment and Plan (1) Elevated troponin: Status: Acute Plan [age] year to underwent presented with fall due to alcoholism. He has been noticed to have mildly elevated troponin level. ECG is normal without any ischemic changes. He has potential pneumonia as well as rhabdomyolysis. Both can lead to mild troponin elevation. Do not recommend heparin. Treat the pneumonia and monitor on CIWA protocol. Thank you for allowing me to participate in the care of your patient. Please feel free to contact me if you have any questions. Procedures Date of Service Date of Service: 10/06/24
[2024-10-06 15:06] VITALS: BP 179/77; PULSE 102; RESP 18; TEMP 37.2; O2SAT 98
[2024-10-06 19:19] VITALS: BP 168/62; PULSE 100; RESP 20; TEMP 37.6; O2SAT 98
[2024-10-06] MEDS: Melatonin 3 MG TABLET 6 MG PO (19:37)
[2024-10-06] MEDS: Enoxaparin Sodium 40 MG/0.4 ML SYRINGE SUBCUT (19:38)
[2024-10-07] VITALS (7 sets, daily range): BP systolic 145–194; BP diastolic 60–90; PULSE 74–91; RESP 16–20; TEMP 36.7–37.7; O2SAT 94–99
[2024-10-07] MEDS: 0.9 % Sodium Chloride Flush 3 ML SYRINGE IVFLUSH ×2 (00:05→08:44)
[2024-10-07] MEDS: Ampicillin Sodium/Sulbactam Na 3 GM in 0.9 % Sodium Chloride 100 ML IV ×3 (05:03→18:42)
[2024-10-07] MEDS: PHENobarbitaL 15 MG TABLET PO ×2 (08:44→20:01)
[2024-10-07] MEDS: Thiamine HCL 100 MG in 0.9 % Sodium Chloride 100 ML 202 MG IV (08:44)
[2024-10-07] MEDS: cloNIDine HCL 0.1 MG TABLET 0.05 MG PO (08:44)
--- NOTE | 2024-10-07 09:41 | P.PNADD_ITS ---
Subjective Subjective Date of Service: 10/07/24 Reason For Visit: ETOH, CP Interim History: Patient seen in follow up for AUD No withdrawal sx --CIWA scores 1 (slight tremor) Phenobarbital taper almost complete Patient is awake, alert, engaged in interview. 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 Resting comfortably, watching a movie Discussed CIRA again, he is agreeable to trial. Review of Systems Constitutional: Reports as per HPI and Reports no additional constitutional complaints Mental Status Exam Mental Status Exam Patient Appearance: Appropriate Patient Orientation: Person, Place, Time and Situation Level of Consciousness: Awake, Appropriate and Alert Patient Behavior: Appropriate, Guarded (slightly guarded ) and Cooperative Mood Description: Calm Affect Description: Calm Speech Pattern: Clear Hallucinations: None Thought Process: Intact Thought Content: positive for Intact Judgement: Good Diagnostics Vital Signs (24Hr): Vital Signs - 24 hr 10/06/24 11:04 10/06/24 15:06 10/06/24 19:19 Temperature 98.1 F 98.9 F 99.6 F Pulse Rate 86 102 H 100 Respiratory Rate 20 18 20 Blood Pressure 146/68 H 179/77 H 168/62 H Pulse Oximetry 96 98 98 Oxygen Delivery Method Nasal Cannula Nasal Cannula Nasal Cannula Oxygen Flow Rate 2 2 2 10/07/24 00:00 10/07/24 04:00 10/07/24 06:54 Temperature 98.5 F 99.8 F 98.7 F Pulse Rate 77 74 86 Respiratory Rate 16 16 18 Blood Pressure 164/75 H 173/79 H 172/60 H Pulse Oximetry 99 98 97 Oxygen Delivery Method Nasal Cannula Nasal Cannula Nasal Cannula Oxygen Flow Rate 2 2 2 BMI result Body Mass Index 26.9 Labs 10/05/24 05:08 10/06/24 07:15 Labs: Laboratory Results - last 48 hr 10/06/24 10/06/24 07:15 10:13 Sodium 139 Potassium 3.3 Chloride 105 Carbon Dioxide 27 Anion Gap 10 L BUN 11 Creatinine 0.93 Estim Creat Clear Calc 81.3 Estimated GFR > 60 Random Glucose 92 Calcium 8.4 Total Creatine Kinase 320 H Troponin I High Sens 12.4 D Medications Medications Current Medications Acetaminophen (Acetaminophen 325 Mg Tablet) 650 mg PO Q6H PRN PRN Reason: Pain, Mild 1-3,fever,headache Calcium Carbonate (Calcium Carbonate 750 Mg Tab.Chew) 750 mg PO Q4H PRN PRN Reason: Heartburn Clonidine HCl (Clonidine Hcl 0.1 Mg Tablet) 0.05 mg PO BID [facility]; Protocol Last Admin: 10/07/24 08:44 Dose: 0.05 mg Enoxaparin Sodium (Enoxaparin Sodium 40 Mg/0.4 Ml Syringe) 40 mg SUBCUT BEDTIME [facility] Last Admin: 10/06/24 19:38 Dose: 40 mg Ampicillin Sodium/Sulbactam (Sodium 3 gm/ Sodium Chloride) 100 mls @ 200 mls/hr IV Q6H [facility] Last Infusion: 10/07/24 05:36 Dose: Infused Thiamine HCl 100 mg/ Sodium (Chloride) 101 mls @ 202 mls/hr IV DAILY [facility] Stop: 10/08/24 08:59 Last Infusion: 10/07/24 09:16 Dose: Infused Magnesium Hydroxide (Milk Of Magnesia 30 Ml Oral.Susp) 30 ml PO DAILY PRN PRN Reason: Constipation Melatonin (Melatonin 3 Mg Tablet) 6 mg PO BEDTIME PRN PRN Reason: Insomnia Last Admin: 10/06/24 19:37 Dose: 6 mg Ondansetron HCl (Ondansetron Hcl 4 Mg/2 Ml Vial) 4 mg IVPUSH Q8H PRN PRN Reason: Nausea and Vomiting Pharmacy Consult (Consult Rx Etoh Phenob Im/Po) 1 each MISCELLANE ONCE PRN; Protocol PRN Reason: Consult order Phenobarbital (Phenobarbital 15 Mg Tablet) 15 mg PO BID [facility]; Protocol Stop: 10/08/24 21:01 Last Admin: 10/07/24 08:44 Dose: 15 mg Phenobarbital (Phenobarbital 15 Mg Tablet) 15 mg PO DAILY [facility]; Protocol Stop: 10/10/24 09:01 Sodium Chloride (0.9 % Sodium Chloride Flush 3 Ml Syringe) 3 ml IVFLUSH QSHIFT [facility] Last Admin: 10/07/24 08:44 Dose: 3 ml Allergies Allergies Allergy/AdvReac Type Severity Reaction Status Date / Time No Known Allergies Allergy Verified 10/04/24 18:43 [No Known Allergies*] Assessment & Plan Assessment & Plan (1) Alcohol use disorder: Status: Acute Code(s): F10.90 - Alcohol use, unspecified, uncomplicated Assessment and Plan: * patient agreeable to Naltrexone trial --reinforced goals of treatment, side effects and dosing. Will start at 25mg daily for 3 days and then increase to 50mg daily. * Referral to [facility] for ongoing follow up. At this time he has no transportation, may require assistance in setting up PT 1 for appts Total time managing care of this patient today _15___ minutes.
[2024-10-07] MEDS: Naltrexone HCl 50 MG TABLET 25 MG PO (11:14)
[2024-10-07] MEDS: PHENobarbitaL 30 MG TABLET 120 MG PO (14:45)
[2024-10-07] MEDS: hydrOXYzine HCL 25 MG TABLET PO (14:45)
--- NOTE | 2024-10-07 16:08 | PC.NURSE ---
Contact information not updated for patient. Able to get ahold of his brother, patient agreeable to having information shared with him. His phone number is and his name is Toñito
--- NOTE | 2024-10-07 17:23 | P.PNIM_ITS ---
Subjective Subjective Date of Service: 10/07/24 Interval History: encephalopathy, ETOH withdrawal, aspiration pna Review of Systems awake c/o chest pain-reproducible, pleuritic ,says in middle chest area. Physical Exam 2 Vital Signs: Vital Signs: Last Vital Signs Temp 99.4 F 10/07/24 15:27 Pulse 89 10/07/24 15:27 Resp 18 10/07/24 15:27 BP 170/90 H 10/07/24 15:27 Pulse Ox 97 10/07/24 15:27 O2 Del Method Room Air 10/07/24 15:27 O2 Flow Rate 2 10/07/24 06:54 BMI result Body Mass Index 26.9 Appearance: Alert.? Oriented X3. cvs: rrr, [id number]. res: air entry siminshed right>left. abd: no rebound or guarding ,nt, bs present. ext pulses present , no cyanosis . neuro: nonfocal. Objective Data Active Medications Acetaminophen (Acetaminophen 325 Mg Tablet) 650 mg PO Q6H PRN PRN Reason: Pain, Mild 1-3,fever,headache Calcium Carbonate (Calcium Carbonate 750 Mg Tab.Chew) 750 mg PO Q4H PRN PRN Reason: Heartburn Clonidine HCl (Clonidine Hcl 0.1 Mg Tablet) 0.1 mg PO BID [facility]; Protocol Enoxaparin Sodium (Enoxaparin Sodium 40 Mg/0.4 Ml Syringe) 40 mg SUBCUT BEDTIME [facility] Last Admin: 10/06/24 19:38 Dose: 40 mg Documented By: TOYA Ampicillin Sodium/Sulbactam (Sodium 3 gm/ Sodium Chloride) 100 mls @ 200 mls/hr IV Q6H [facility] Last Infusion: 10/07/24 15:19 Dose: Infused Documented By: AMILCAR Thiamine HCl 100 mg/ Sodium (Chloride) 101 mls @ 202 mls/hr IV DAILY [facility] Stop: 10/08/24 08:59 Last Infusion: 10/07/24 09:16 Dose: Infused Documented By: AMILCAR Magnesium Hydroxide (Milk Of Magnesia 30 Ml Oral.Susp) 30 ml PO DAILY PRN PRN Reason: Constipation Melatonin (Melatonin 3 Mg Tablet) 6 mg PO BEDTIME PRN PRN Reason: Insomnia Last Admin: 10/06/24 19:37 Dose: 6 mg Documented By: TOYA Ondansetron HCl (Ondansetron Hcl 4 Mg/2 Ml Vial) 4 mg IVPUSH Q8H PRN PRN Reason: Nausea and Vomiting Pharmacy Consult (Consult Rx Etoh Phenob Im/Po) 1 each MISCELLANE ONCE PRN; Protocol PRN Reason: Consult order Phenobarbital (Phenobarbital 15 Mg Tablet) 15 mg PO BID [facility]; Protocol Stop: 10/08/24 21:01 Last Admin: 10/07/24 08:44 Dose: 15 mg Documented By: AMILCAR Phenobarbital (Phenobarbital 15 Mg Tablet) 15 mg PO DAILY [facility]; Protocol Stop: 10/10/24 09:01 Sodium Chloride (0.9 % Sodium Chloride Flush 3 Ml Syringe) 3 ml IVFLUSH QSHIFT [facility] Last Admin: 10/07/24 15:19 Dose: Not Given Documented By: AMILCAR Non-Admin Reason: IV Running Labs 10/05/24 05:08 10/06/24 07:15 Microbiology Microbiology Results: Microbiology 10/04/24 19:49 Blood Culture - Preliminary Blood - Venous No growth after 48 hours. 10/04/24 19:49 Blood Culture - Preliminary Blood - Venous No growth after 48 hours. Assessment and Plan (1) Rhabdomyolysis: Status: Acute (2) ROGELIO (acute kidney injury): Status: Acute Plan 64-year-old male with a past medical history significant for ?hypertension (no medication), alcohol use, who presented to the ED via EMS as patient was found unresponsive at home by family member. Patient denied any recent alcohol or drug use but was responsive to 8mg of Narcan and alcohol level is 10. Released from long term this morning at 10:30am, found unresponsive later this afternoon. Sepsis, acute respiratory failure with hypoxia, and metabolic encephalopathy secondary to aspiration pneumonia COVID/flu/RSV negative chest CT ill-defined diffuse bilateral dependent consolidations in the right greater than left lungs. Superimposed aspiration or pneumonia suspected. Paraseptal and central lobar emphysema with bullous changes in the right apex blood culture -neg@24hrs plan: IV Unasyn new O2 requirement, currently maintaining on 2 L via NC monitor CBC and BMP Rhabdo (likely traumatic due to fall) secondary to fall and demand ischemia CPK 1911,1516, 813-320 ROGELIO secondary to demand ischemia creatinine 2.14, 1.68 improved with ivf. Alcohol withdrawal/etoh abuse alcohol level 10 phenobarb protocol monitor CIWA,thiamine,folic acid. utox -postive for fentanyl,benzo. addiction med consult, on tele elevated blood pressure insetting of above: adjusted clonidine 0.1mg po bid Substance use disorder/overdose/toxic encephalopathy patient responsive to 8 mg Narcan by EMS but denies substance use addiction med consult urine tox screen -seems positive for fentanyl Acute lactic acidosis 3.3, 2.6 on repeat likely secondary to demand ischemia and albuterol use, no further lactic acid trending. follow CBC and BMP Elevated troponin/chest pain -reproducable . 29.1-111.3-12.4 EKG repeated -unchanged added echo Elevated BP readings likely secondary to withdrawal, follow Full code VTE prophylaxis: Lovenox. Quality Stroke Does the patient have a stroke diagnosis?: No VTE Prior VTE?: No VTE Risk Level:: Medical - moderate - high VTE Device Contraindication: Treatment Not Indicated VTE Drug Contraindication: N/A - Med Ordered
--- NOTE | 2024-10-07 17:25 | P.CDIM_ITS ---
PROVIDER RESPONSE TEXT: To clarify, the appropriate diagnosis supported by the clinical indicators: Non-Traumatic Rhabdomyolysis QUERY TEXT: PHYSICIAN'S DOCUMENTATION REQUEST Date of Query: 10/07/2024 09:57 AM EDT Patient Name: Ian Adhikari Admit Date: 10/05/2024 Dear Angel Morgan MD, A review of the medical record indicates additional documentation may be needed. Please review below and update the documentation accordingly. Clinical Indicators: Progress notes within the Plan 10/06/24 - Rhabodo, secondary to fall. CPK 1911, 1516 on repeat. Given IV fluids in ED, continue LR 200 mL/HR Monitor CPK Found unresponsive, fell onto the floor. Based on the above, could you clarify any further specifics to the documented Rhabdomyolysis: Traumatic Rhabdomyolysis possible, probable, suspected, cannot rule out etc. Non-Traumatic Rhabdomyolysis Other specified Other (explain) Clinically unable to determine (explain) Thank you, Tracey Aldana, CCS, CDIS Use of terms such as suspected, likely, concern for, or probable (associated with a specific diagnosi s that is being evaluated, monitored, or treated as if it exists) are acceptable and can be coded in the inpatient se tting, when documented at the time of discharge. Please use your independent medical judgment in providing your response. THIS QUERY IS PART OF THE PERMANENT MEDICAL RECORD
[2024-10-07] MEDS: cloNIDine HCL 0.1 MG TABLET PO (20:00)
[2024-10-07] MEDS: Enoxaparin Sodium 40 MG/0.4 ML SYRINGE SUBCUT (20:02)
[2024-10-07] MEDS: Melatonin 3 MG TABLET 6 MG PO (20:05)
[2024-10-08] VITALS: BP 144/62; PULSE 82; RESP 18; TEMP 37.6; O2SAT 95
[2024-10-08] MEDS: Ampicillin Sodium/Sulbactam Na 3 GM in 0.9 % Sodium Chloride 100 ML IV ×2 (01:43→06:20)
[2024-10-08 02:45] VITALS: BP 159/79; PULSE 97; RESP 20; TEMP 37.2; O2SAT 93
[2024-10-08] MEDS: guaiFEN/Codeine SF 200/20/10ML 10 ML LIQUID PO (03:12)
[2024-10-08] MEDS: Calcium Carbonate 750 MG TAB.CHEW PO ×2 (06:20→13:43)
[2024-10-08 07:09] VITALS: BP 178/98; PULSE 91; RESP 18; TEMP 37.1; O2SAT 94
[2024-10-08] MEDS: cloNIDine HCL 0.1 MG TABLET PO (07:54)
[2024-10-08] MEDS: PHENobarbitaL 15 MG TABLET PO (07:54)
[2024-10-08] MEDS: 0.9 % Sodium Chloride Flush 3 ML SYRINGE IVFLUSH (07:54)
[2024-10-08 09:03] VITALS: BP 180/85
[2024-10-08] MEDS: amLODIPine Besylate 2.5 MG TABLET PO (09:55)
[2024-10-08 11:01] VITALS: BP 169/87; PULSE 89; RESP 18; TEMP 37.1; O2SAT 92
[2024-10-08 11:39] VITALS: BP 144/70
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
--- NOTE | 2024-10-08 12:09 | MHC.CM.PN ---
Pt has been medically cleared for DC, he will go home via private transport, plan is self care.
[2024-10-08] MEDS: Amoxicillin/Potassium Clav 875 MG TABLET PO (12:28)
[2024-10-08] MEDS: Naloxone HCl Nasal TAKE HOME 4 MG SPRAY 8 MG NOSTRILALT (13:41)
== END 2024-10-08 14:58 | disposition home or self-care (01) | DRG 812 ==
LOC: HO.ED 10-05 00:34 → HO.EDOVER 10-05 01:00 → HO.IMC 10-05 07:13
PROVIDERS: Nurse Practitioner Acute Care; Admitting Provider Student in an Organized Health Care Education/Training Program; Emergency Provider Emergency Medicine; Visit Provider Internal Medicine
DX: T50.901A Poisoning by unspecified drugs, medicaments and biological substances, accidental (unintentional), initial encounter (principal); J96.01 Acute respiratory failure with hypoxia; J69.0 Pneumonitis due to inhalation of food and vomit; A41.9 Sepsis, unspecified organism; G92.8 Other toxic encephalopathy; N17.9 Acute kidney failure, unspecified; E87.21 Acute metabolic acidosis; F10.239 Alcohol dependence with withdrawal, unspecified; M62.82 Rhabdomyolysis; Z20.822 Contact with and (suspected) exposure to COVID-19
CPT/HCPCS: 0241U; 36415; 70450; 71045; 71250; 80048; 80076; 80307; 82550; 82803; 83605; 83735; 84484; 85025; 85027; 85610; 86140; 87040; 92526; 92610; 93005; 93306; 94640; 99285; J0295; J1650; J2543; J2560; J3411; J7120; P9047; Q9957; S9485

== ENCOUNTER → 2024-10-04 18:54 | Outpatient (BNV) | payer OTHER, SELFPAY | PROVIDERS: Admitting Provider Student in an Organized Health Care Education/Training Program; Emergency Provider Emergency Medicine; Visit Provider Internal Medicine Cardiovascular Disease | DX: R00.0 Tachycardia, unspecified (principal) | CPT/HCPCS: 93010 ==

== ENCOUNTER → 2024-10-04 19:11 | Outpatient (BNV) | payer OTHER, SELFPAY | PROVIDERS: Emergency Provider Emergency Medicine; Visit Provider Radiology Diagnostic Radiology | DX: R09.02 Hypoxemia (principal); R05.9 Cough, unspecified | CPT/HCPCS: 70450; 71045; 71250 ==

== ENCOUNTER → 2024-10-04 19:39 | Outpatient (BNV) | payer OTHER, SELFPAY | PROVIDERS: Emergency Provider Emergency Medicine; Visit Provider Physician Assistant | DX: M62.82 Rhabdomyolysis (principal); N17.9 Acute kidney failure, unspecified | CPT/HCPCS: 99231; 99239 ==

== ENCOUNTER 2024-10-04 22:57 | Outpatient (BNV) | payer OTHER, SELFPAY | END 2024-10-06 11:59 | PROVIDERS: Admitting Provider Student in an Organized Health Care Education/Training Program; Emergency Provider Emergency Medicine; Visit Provider Internal Medicine Cardiovascular Disease | DX: R07.9 Chest pain, unspecified (principal) | CPT/HCPCS: 93010 ==

== ENCOUNTER → 2024-10-04 22:57 | Outpatient (BNV) | payer OTHER, SELFPAY | PROVIDERS: Admitting Provider Student in an Organized Health Care Education/Training Program; Emergency Provider Emergency Medicine; Visit Provider Nurse Practitioner Psychiatric/Mental Health | DX: F10.90 Alcohol use, unspecified, uncomplicated (principal) | CPT/HCPCS: 99222; 99231 ==

== ENCOUNTER → 2024-10-04 22:57 | Outpatient (BNV) | payer OTHER, SELFPAY | PROVIDERS: Admitting Provider Student in an Organized Health Care Education/Training Program; Emergency Provider Emergency Medicine; Visit Provider Internal Medicine Cardiovascular Disease | DX: R79.89 Other specified abnormal findings of blood chemistry (principal) | CPT/HCPCS: 99223 ==